=== PATIENT | male | born 1990 | race Caucasian/White ===

== ENCOUNTER 2020-10-27 11:28 | Emergency (ER) | payer OTHER ==
[~2020-10-27] VITALS: Ht 188 cm; Wt 106.6 kg
[2020-10-27] MEDS ORDERED: DEXAMETHASONE SOD PHOS 10 MG/1 ML VIAL IM STA (11:45)
[2020-10-27] MEDS ORDERED: ACETAMINOPHEN 325 MG TAB PO STA (11:45)
[2020-10-27] MEDS ORDERED: ACETAMINOPHEN 325 MG TAB ONE (12:10)
[2020-10-27] MEDS ORDERED: DEXAMETHASONE SOD PHOS INJ 4 MG/ML VIAL ONE (12:10)
== END 2020-10-27 12:28 | disposition home or self-care (01) ==
LOC: FSED 11:50
DX: J02.9 Acute pharyngitis, unspecified (principal); R50.9 Fever, unspecified; R53.81 Other malaise
CPT/HCPCS: 83518; 99282; J1100